=== PATIENT | female | born 1935 | race Caucasian/White ===

== ENCOUNTER 2018-03-25 00:49 | Emergency (ER) | payer OTHER ==
[~2018-03-25] VITALS: Ht 152.4 cm; Wt 76.3 kg
[~2018-03-25 00:49] MED LIST: TYLETAB34 PO; XARE15TA PO; ZOFR4TAB PO
[2018-03-25 00:52] VITALS: BP 181/74; PULSE 98; RESP 20; TEMP 98.4; O2SAT 94
[2018-03-25 01:20] VITALS: O2SAT 97
--- NOTE | 2018-03-25 01:20 | PD ---
HPI Chief Complaint: Fall Time Seen by Provider: 01:11 Travel History International Travel<30 days: No Contact w/Intl Traveler<30days: No Traveled to known affect area: No History of Present Illness HPI 82-year-old female here for evaluation of severe right-sided rib pain after mechanical trip and fall that occurred at around 9:30 PM yesterday evening. Patient reports that she was putting a bingo machine away when it caught on the carpet and she fell onto her right side. She remembers striking her face against the ground. She denies loss of consciousness. She states that she experienced immediate right-sided rib pain. She tried taking tramadol at home, however her pain has kept her from sleeping. She was driven here by her son. Pain is severe, constant, worse with movements as well as inspiration. She denies dyspnea. No abdominal pain. No head neck or back pain. No upper or lower extremity pain. She is on Xarelto for history of DVT. PFSH Past Medical History Hx Anticoagulant Therapy: Yes Asthma: No Blood Disorders: No Anxiety: No Depression: No Cancer: Yes (DYSPLASIA CELLS VAGINA) Cardiovascular Problems: Yes High Cholesterol: Yes COPD: Yes Cerebrovascular Accident: Yes Diabetes: No Diminished Hearing: No Diverticulitis: Yes Deep Vein Thrombosis: Yes (RIGHT CALF) Endocrine: No Gastrointestinal Disorders: Yes GERD: Yes Genitourinary: No Immune Disorder: No Implanted Vascular Access Dvce: Yes Medical other: Yes (DVT) Musculoskeletal: No Neurologic: Yes Psychiatric: No Reproductive: No Respiratory: Yes (COPD) Immunizations Current: No Pneumonia: Yes Tetanus Vaccination: Unknown Influenza Vaccination: No ?: Not Menopausal: Yes Ovarian Cysts: Yes Tubal Ligation: Yes Past Surgical History Abdominal Surgery: Yes (appy and choley) Appendectomy: Yes Body Medical Devices: stimulator for bowel incontenence - NO MRI Cholecystectomy: Yes (05) Gynecologic Surgery: Yes (DYSPLASIA CELLS OF VAGINA, hysterectomy, OOPHERECTOMY ) Hysterectomy: Yes Other Surgery: Yes (RECTAL SPHINCTER IMPLANT) Social History Alcohol Use: Yes (OCCASIONAL- EDWIN) Tobacco Use: No Substance Use: No Allergies-Medications (Allergen,Severity, Reaction): Coded Allergies: dimenhydrinate (Unverified Allergy, Severe, Nausea/Vomiting, 03/25/18) Reported Meds & Prescriptions Reported Meds & Active Scripts Active Reported Xarelto (Rivaroxaban) 15 Mg Tab 15 Mg PO Q12HR Review of Systems Except as stated in HPI: all other systems reviewed are Neg Physical Exam Narrative GENERAL: Well-developed, well-nourished, awake, alert, holding right-sided chest , no apparent distress. SKIN: Focused skin assessment warm/dry. Slight ecchymosis to right anterior/ lateral chest. No lacerations. HEAD: Atraumatic. Normocephalic. EYES: Pupils equal and round. No scleral icterus. No injection or drainage. ENT: Mucous membranes pink and moist. NECK: Trachea midline. No JVD. No midline cervical spine step-off or tenderness. CARDIOVASCULAR: Regular rate and rhythm. RESPIRATORY: No accessory muscle use. Clear to auscultation. Breath sounds equal bilaterally. GASTROINTESTINAL: Abdomen soft, non-tender, nondistended. MUSCULOSKELETAL: No obvious deformities. No clubbing. No cyanosis. No edema. Moderate right anterior/lateral chest wall tenderness without step-off, without crepitus, without paradoxical chest wall movements. NEUROLOGICAL: Awake and alert. No obvious cranial nerve deficits. Motor grossly within normal limits. Normal speech. PSYCHIATRIC: Appropriate mood and affect; insight and judgment normal. Data Data Last Documented VS Vital Signs Date Time Temp Pulse Resp B/P (MAP) Pulse Ox O2 Delivery O2 Flow Rate FiO2 03/25/18 03:20 88 18 146/77 (100) 97 Room Air 03/25/18 00:52 98.4 Orders Orders Complete Blood Count With Diff (03/25/18 01:16) Comprehensive Metabolic Panel (03/25/18 01:16) Prothrombin Time / Inr (Pt) (03/25/18 01:16) Act Partial Throm Time (Ptt) (03/25/18 01:16) Ct Abd/Pel W Iv Contrast(Rout) (03/25/18 01:16) Iv Access Insert/Monitor (03/25/18 01:16) Ecg Monitoring (03/25/18 01:16) Oximetry (03/25/18 01:16) Sodium Chloride 0.9% Flush (Ns Flush) (03/25/18 01:30) Electrocardiogram (03/25/18 01:16) Ct Thorax/ Chest W Iv Contrast (03/25/18 ) Ct Brain W/O Iv Contrast(Rout) (03/25/18 ) Ct Cerv Spine W/O Contrast (03/25/18 ) Chest, Single Ap (03/25/18 ) Morphine Inj (Morphine Inj) (03/25/18 01:30) Morphine Inj (Morphine Inj) (03/25/18 01:45) Iohexol 350 Inj (Omnipaque 350 Inj) (03/25/18 02:20) Resp Incentive Spirometry (03/25/18 ) Labs Laboratory Tests Test 03/25/18 01:20 White Blood Count 9.2 TH/MM3 Red Blood Count 4.25 MIL/MM3 Hemoglobin 12.9 GM/DL Hematocrit 37.9 % Mean Corpuscular Volume 89.3 FL Mean Corpuscular Hemoglobin 30.4 PG Mean Corpuscular Hemoglobin Concent 34.1 % Red Cell Distribution Width 13.9 % Platelet Count 296 TH/MM3 Mean Platelet Volume 8.2 FL Neutrophils (%) (Auto) 78.8 % Lymphocytes (%) (Auto) 12.8 % Monocytes (%) (Auto) 5.7 % Eosinophils (%) (Auto) 1.5 % Basophils (%) (Auto) 1.2 % Neutrophils # (Auto) 7.3 TH/MM3 Lymphocytes # (Auto) 1.2 TH/MM3 Monocytes # (Auto) 0.5 TH/MM3 Eosinophils # (Auto) 0.1 TH/MM3 Basophils # (Auto) 0.1 TH/MM3 CBC Comment DIFF FINAL Differential Comment Prothrombin Time 11.4 SEC Prothromb Time International Ratio 1.1 RATIO Activated Partial Thromboplast Time 27.5 SEC Blood Urea Nitrogen 15 MG/DL Creatinine 0.95 MG/DL Random Glucose 152 MG/DL Total Protein 7.8 GM/DL Albumin 3.5 GM/DL Calcium Level 9.0 MG/DL Alkaline Phosphatase 75 U/L Aspartate Amino Transf (AST/SGOT) 25 U/L Alanine Aminotransferase (ALT/SGPT) 36 U/L Total Bilirubin 0.4 MG/DL Sodium Level 142 MEQ/L Potassium Level 3.8 MEQ/L Chloride Level 108 MEQ/L Carbon Dioxide Level 27.5 MEQ/L Anion Gap 7 MEQ/L Estimat Glomerular Filtration Rate 56 ML/MIN [facility] Medical Decision Making Medical Screen Exam Complete: Yes Emergency Medical Condition: Yes Medical Record Reviewed: Yes Interpretation(s) EKG: Sinus, rate 90, normal axis, first-degree AV block with a ME interval of 232, low voltages in precordial leads, no acute ischemic abnormality. Differential Diagnosis Rib fractures, pneumothorax, hemothorax, intra-abdominal trauma, intracranial trauma, cervical spine injury Narrative Course Vital signs show heart rate 90, blood pressure 145/71, pulse ox 97% on room air , oral temp of 98.4F. CBC is unremarkable. CMP is essentially unremarkable. Chest x-ray: No acute process. CT head: No acute intracranial findings. CT cervical spine: CONCLUSION: No acute bony injury in the cervical spine. Degenerative changes throughout with moderate bony canal stenosis most significantly at C5-6 and C6-7. CT thorax: No acute injury in the chest. CT abdomen pelvis: CONCLUSION: No acute injury in the abdomen or pelvis. Patient was made aware of all findings. On reassessment she is sleeping comfortably. She is very tender along her right anterior/lateral chest wall just below her breasts. Again there is no step-off or crepitus or paradoxical chest wall movements. She has tramadol at home, but is requesting something a little bit stronger in case her pain worsens. She was given 2 mg of morphine with improvement in pain here in the emergency department. I will give her a prescription for hydrocodone and will discharge her home with an incentive spirometer. She has an appointment with her primary care physician at 10:00 AM today. She is stable for discharge home. Her son will be contacted to pick her up. She was advised on when to return to the emergency department. She verbalizes understanding and agreement with plan. Diagnosis Primary Impression: Chest wall contusion Qualified Codes: S20.211A - Contusion of right front wall of thorax, initial encounter Additional Impression: Fall Qualified Codes: W19.XXXA - Unspecified fall, initial encounter Referrals: Primary Care Physician 1 day Additional Instructions: Follow-up with your primary care physician today as scheduled. Return to the emergency department for worsening symptoms or any other concerns. Scripts Hydrocodone-Acetaminophen (Hydrocodone-Acetaminophen) 5-325 mg Tab 1 TAB PO Q6H Y for PAIN, #10 TAB 0 Refills Prov: Wayne Clarke MD 03/25/18 Disposition: 01 DISCHARGE HOME Condition: Stable Wayne Clarke MD March 25, 2018 01:20
[2018-03-25] MEDS ORDERED: SODIUM CHLORIDE 0.9% FLUSH 10 ML FLUSH IV FLUSH PRN (01:30)
[2018-03-25] MEDS ORDERED: MORPHINE SULFATE 2 MG/ML SYRINGE IV PUSH ONE (01:30)
[2018-03-25 01:35] LABS: AUTOMATED NEUTROPHIL # 7.3 TH/MM3 (1.8-7.7); BASOPHIL # 0.1 TH/MM3 (0-0.2); BASOPHIL % 1.2 % (0.0-2.0); EOSINOPHIL # 0.1 TH/MM3 (0-0.4); EOSINOPHIL % 1.5 % (0.0-4.0); HEMATOCRIT 37.9 % (35.0-46.0); HEMOGLOBIN 12.9 GM/DL (11.6-15.3); LYMPH % 12.8 % (9.0-44.0); LYMPHOCYTE # 1.2 TH/MM3 (1.0-4.8); MEAN CELL VOLUME 89.3 FL (80.0-100.0); MEAN CORPUSCULAR HEMOGLOBIN 30.4 PG (27.0-34.0); MEAN CORPUSCULAR HGB CONC 34.1 % (32.0-36.0); MEAN PLATELET VOLUME 8.2 FL (7.0-11.0); MONO % 5.7 % (0.0-8.0); MONOCYTE # 0.5 TH/MM3 (0-0.9); NEUT % 78.8 % (16.0-70.0); PLATELET COUNT 296 TH/MM3 (150-450); RED BLOOD COUNT 4.25 MIL/MM3 (4.00-5.30); RED CELL DISTRIBUTION WIDTH 13.9 % (11.6-17.2); WHITE BLOOD COUNT 9.2 TH/MM3 (4.0-11.0)
[2018-03-25 01:45] LABS: CHLORIDE 108 MEQ/L (98-107); SODIUM (NA) 142 MEQ/L (136-145)
[2018-03-25] MEDS ORDERED: MORPHINE SULFATE 4 MG/ML INJ IV PUSH ONE (01:45)
--- NOTE | 2018-03-25 01:49 | RADRPT ---
EXAM DATE/TIME: 03/25/2018 01:17 [facility] COMPARISON: CHEST SINGLE AP, March 28, 2015, 10:56. INDICATIONS : Right sided chest pain post fall today MEDICAL HISTORY : Chronic obstructive pulmonary disease. SURGICAL HISTORY : None. ENCOUNTER: Initial ACUITY: 1 day PAIN SCORE: 10/10 LOCATION: Right chest FINDINGS: There is mild linear parenchymal opacity at the left lung base which is grossly unchanged and likely scarring. The right lung is grossly clear. Cardiac contours are stable and satisfactory. No evidence of hemothorax or pneumothorax. Thoracic skeleton is stable with degenerative changes in the spine and shoulders. CONCLUSION: No acute process Anoop Flores MD on March 25, 2018 at 1:45 Board Certified Radiologist. This report was verified electronically.
[2018-03-25 01:50] VITALS: BP 145/71; PULSE 90; RESP 18; O2SAT 97
[2018-03-25 01:50] LABS: ALBUMIN 3.5 GM/DL (3.4-5.0); BICARBONATE 27.5 MEQ/L (21.0-32.0); BLOOD UREA NITROGEN 15 MG/DL (7-18); GLUCOSE,RANDOM 152 MG/DL (74-106)
[2018-03-25 01:51] LABS: INTERNATIONAL NORMALIZED RATIO 1.1 RATIO; PROTHROMBIN TIME - PATIENT 11.4 SEC (9.8-11.6)
[2018-03-25 01:53] LABS: ALT (GPT) 36 U/L (10-53); AST (GOT) 25 U/L (15-37); CREATININE 0.95 MG/DL (0.50-1.00); GLOMERULAR FILTRATION RATE 56 ML/MIN (>89)
[2018-03-25 01:54] LABS: TOTAL BILIRUBIN ADULT 0.4 MG/DL (0.2-1.0); TOTAL PROTEIN 7.8 GM/DL (6.4-8.2)
[2018-03-25 01:56] LABS: ALKALINE PHOSPHATASE 75 U/L (45-117)
[2018-03-25] MEDS ORDERED: IOHEXOL 350 MG/ML 10 ML VIAL (for RAD DIAG) IVCONTRAST ONE (02:20)
--- NOTE | 2018-03-25 02:53 | RADRPT ---
EXAM DATE/TIME: 03/25/2018 02:08 [facility] COMPARISON: No previous studies available for comparison. INDICATIONS : Patient fell this evening. RADIATION DOSE: 67.04 CTDIvol (mGy) MEDICAL HISTORY : Chronic obstructive pulmonary disease. Cerebrovascular disease. SURGICAL HISTORY : Appendectomy. Hysterectomy.Cholecystectomy.Implanted stimulator ENCOUNTER: Initial ACUITY: 1 day PAIN SCALE: 10/10 LOCATION: cranial TECHNIQUE: Multiple contiguous axial images were obtained of the head. Using automated exposure control and adj ustment of the mA and/or kV according to patient size, radiation dose was kept as low as reasonably a chievable to obtain optimal diagnostic quality images. DICOM format image data is available electro nically for review and comparison. FINDINGS: There are a couple of old right basal ganglia lacunar infarcts which are small. No evidence of intrac ranial mass or hemorrhage. No evidence of brain edema or shift. Nothing to suggest acute infarction. Extracranial structures are benign and intact. CONCLUSION: No acute intracranial findings Anoop Flores MD on March 25, 2018 at 2:48 Board Certified Radiologist. This report was verified electronically.
[2018-03-25 03:20] VITALS: BP 146/77; PULSE 88; RESP 18; O2SAT 97
--- NOTE | 2018-03-25 03:47 | RADRPT ---
EXAM DATE/TIME: 03/25/2018 02:08 [facility] COMPARISON: No previous studies available for comparison. INDICATIONS : Patient fell this evening. Neck pain. RADIATION DOSE: 26.53 CTDIvol (mGy) MEDICAL HISTORY : Cerebrovascular disease. Chronic obstructive pulmonary disease. Gastroesophageal reflux disease. SURGICAL HISTORY : Appendectomy. Hysterectomy.Cholecystectomy.Stimulator implant ENCOUNTER: Initial ACUITY: 1 day PAIN SCALE: 10/10 LOCATION: Right Paraspinal TECHNIQUE: Volumetric scanning of the cervical spine was performed. Multiplanar reconstructions in the sagittal, coronal and oblique axial planes were performed. Using automated exposure control and adjustment o f the mA and/or kV according to patient size, radiation dose was kept as low as reasonably achievable to obtain optimal diagnostic quality images. DICOM format image data is available electronically f or review and comparison. FINDINGS: Cervical spine alignment is satisfactory. There is no evidence of cervical spine fracture. There is p rominent degenerative change with disc space narrowing and endplate osteophyte formation most signifi cantly at C5-6 and C6-7. There is mild bony canal stenosis. There is moderately severe arthropathy of the posterior facet joints throughout. There is no evidence of paraspinal hematoma. CONCLUSION: No acute bony injury in the cervical spine. Degenerative changes throughout with moderate bony canal stenosis most significantly at C5-6 and C6-7. Anoop Flores MD on March 25, 2018 at 3:36 Board Certified Radiologist. This report was verified electronically.
--- NOTE | 2018-03-25 03:51 | RADRPT ---
EXAM DATE/TIME: 03/25/2018 02:14 [facility] COMPARISON: No previous studies available for comparison. INDICATIONS : Status post fall, right rib pain. IV CONTRAST: 96 cc Omnipaque 350 (iohexol) IV ; Cumulative dose for multiple exams. RADIATION DOSE: 17.89 CTDIvol (mGy) ; Combined studies - Thorax/Abdomen/Pelvis MEDICAL HISTORY : Chronic obstructive pulmonary disease. Cerebrovascular disease. Diverticulitis.GERD SURGICAL HISTORY : Hysterectomy. Cholecystectomy.Appendectomy. ENCOUNTER: Initial ACUITY: 1 day PAIN SCALE: 10/10 LOCATION: Right chest TECHNIQUE: Volumetric scanning of the chest was performed. Using automated exposure control and adjustment of t he mA and/or kV according to patient size, radiation dose was kept as low as reasonably achievable to obtain optimal diagnostic quality images. DICOM format image data is available electronically for review and comparison. Follow-up recommendations for detected pulmonary nodules are based at a minimum on nodule size and pa tient risk factors according to Fleischner Society Guidelines. FINDINGS: LUNGS: There is no consolidation or pneumothorax. No concerning pulmonary nodule is visualized. PLEURA: There is no pleural thickening or pleural effusion. MEDIASTINUM: The heart and great vessels demonstrate no acute abnormality. There is no mediastinal or hilar lymph adenopathy. AXILLAE: Within normal limits. No lymphadenopathy. SKELETAL: Within normal limits for patient age. MISCELLANEOUS: The visualized upper abdominal organs demonstrate no acute abnormality. CONCLUSION: No acute injury in the chest. Anoop Flores MD on March 25, 2018 at 3:46 Board Certified Radiologist. This report was verified electronically.
--- NOTE | 2018-03-25 03:54 | RADRPT ---
EXAM DATE/TIME: 03/25/2018 02:14 [facility] COMPARISON: No previous studies available for comparison. INDICATIONS : Status post fall right side pain IV CONTRAST: 96 cc Omnipaque 350 (iohexol) IV ; Cumulative dose for multiple exams. ORAL CONTRAST: No oral contrast ingested. RADIATION DOSE: 17.89 CTDIvol (mGy) ; Combined studies - Thorax/Abdomen/Pelvis MEDICAL HISTORY : Chronic obstructive pulmonary disease. Cerebrovascular disease. Diverticulitis.GERD SURGICAL HISTORY : Appendectomy. Tonsillectomy.Hysterectomy.Stimulator implant ENCOUNTER: Initial ACUITY: 1 day PAIN SCALE: 10/10 LOCATION: Right lateral abdomen TECHNIQUE: Volumetric scanning of the abdomen and pelvis was performed. Using automated exposure control and ad justment of the mA and/or kV according to patient size, radiation dose was kept as low as reasonably achievable to obtain optimal diagnostic quality images. DICOM format image data is available electro nically for review and comparison. FINDINGS: LOWER LUNGS: The visualized lower lungs are clear. LIVER: Homogeneous density without lesion. There is no dilation of the biliary tree. Gallbladder surgically absent.. SPLEEN: Normal size without lesion. PANCREAS: Within normal limits. KIDNEYS: Tiny bilateral cysts. No evidence of injury, stone or hydronephrosis ADRENAL GLANDS: Within normal limits. VASCULAR: There is no aortic aneurysm. BOWEL/MESENTERY: Colonic diverticulosis. No abnormal dilatation, wall thickening or focal inflammatory changes. ABDOMINAL WALL: Within normal limits. RETROPERITONEUM: There is no lymphadenopathy. BLADDER: No wall thickening or mass. REPRODUCTIVE: Uterus surgically absent. No evidence of pelvic mass, hematoma or free fluid. INGUINAL: There is no lymphadenopathy or hernia. MUSCULOSKELETAL: Pelvic stimulator with control pack over the right iliac crest. Degenerative changes in the spine and hips. No evidence of pelvic fracture. CONCLUSION: No acute injury in the abdomen or pelvis. Anoop Flores MD on March 25, 2018 at 3:49 Board Certified Radiologist. This report was verified electronically.
[2018-03-25] MEDS ORDERED: HYDR-3516 PO (04:06)
[2018-03-25 04:32] VITALS: BP 141/70; PULSE 86; RESP 18; O2SAT 97
--- NOTE | 2018-03-25 19:27 | EKG ---
Date Performed: 03/25/2018 Time Performed: 02:47:19 PTAGE: 82 years EKG: Sinus rhythm WITH FIRST DEGREE AV BLOCK LOW QRS VOLTAGE IN PRECORDIAL LEADS ABNORMAL ECG Since the PREVIOUS TRACING , no significant change noted PREVIOUS TRACIN01/13/2015 10.09 DOCTOR: Sean Johnson Interpretating Date/Time 03/25/2018 16:41:33
[2018-03-28] MEDS ORDERED: ALBU1AER5 INH (15:07)
[2018-03-28] MEDS ORDERED: XARE15TA PO (15:07)
[2018-03-28] MEDS ORDERED: TRAM50TA PO (15:07)
== END 2018-03-25 04:34 | disposition home or self-care (01) ==
LOC: PHED 00:49
DX: S20.211A Contusion of right front wall of thorax, initial encounter (principal); I44.0 Atrioventricular block, first degree; R94.31 Abnormal electrocardiogram [ECG] [EKG]; E78.00 Pure hypercholesterolemia, unspecified; J44.9 Chronic obstructive pulmonary disease, unspecified; K21.9 Gastro-esophageal reflux disease without esophagitis; W01.0XXA Fall on same level from slipping, tripping and stumbling without subsequent striking against object, initial encounter; Z86.718 Personal history of other venous thrombosis and embolism; Z86.73 Personal history of transient ischemic attack (TIA), and cerebral infarction without residual deficits
CPT/HCPCS: 70450; 71045; 71260; 72125; 74177; 80053; 85025; 85610; 85730; 93005; 94150; 96374; 99285; J2270; Q9967

== ENCOUNTER → 2018-03-28 | Outpatient (CLI) | payer OTHER ==
[~2018-03-28] MED LIST changes: +ALBU1AER5 INH; +HYDR-3516 PO; +TRAM50TA PO; -TYLETAB34 PO; -ZOFR4TAB PO
== END ==
LOC: CPRE 11:21
PROVIDERS: ATTEND Orthopaedic Surgery Sports Medicine
DX: M17.11 Unilateral primary osteoarthritis, right knee (principal)

== ENCOUNTER 2018-08-01 06:54 | Inpatient (IN) ==
--- NOTE | 2018-07-26 09:18 | P.RAD ---
Post Procedure Progress Note - Procedure Information Procedure Date: 07/26/18 Supervising Radiologist: Antoine Benoit MD Estimated blood loss (mL): 5 Anesthesia: Conscious Sedation - Plan of Activity Patient to Unit: [facility] Patient Condition: Good See PACS Report for procedural detail/treatment.
[2018-08-01] MEDS ORDERED: Chlorhexidine Gluconate 2% 1 Pack (2 Cloths) TOPICAL ONE (07:27)
[2018-08-01] MEDS ORDERED: Metoprolol Tartrate 25 MG Tablet PO ONE (07:27)
[2018-08-01] MEDS ORDERED: Dexamethasone Inj 20 MG/5 ML Vial IV.PUSH ONE (07:36)
[2018-08-01] MEDS ORDERED: Sodium Chlor 0.9% Inj 73.07 ML, Ropivacaine 0.5% PF Inj 24.63 ML, Ketorolac Inj 30 MG, ... P-ARTICULR SCH ×5 (07:45)
[2018-08-01] MEDS ORDERED: Chlorhexidine 4% Topical 120 APPLIC/120 ML Bottle TOPICAL SCH (07:45)
[2018-08-01] MEDS ORDERED: Sodium Chlor 0.9% Inj 250 ML ONE (07:58)
[2018-08-01] MEDS ORDERED: Vancomycin Inj 1,000 MG in Sodium Chlor 0.9% Inj 250 ML IV.SIG SCH (08:00)
[2018-08-01] MEDS ORDERED: ceFAZolin 2 GM/NS 100 ML IV; Q8H IV.SIG SCH ×2 (08:00)
[2018-08-01] MEDS ORDERED: TRANEXAMIC ACID IV.SIG SCH (08:00)
[2018-08-01] MEDS ORDERED: Sodium Chlor 0.9% Inj 500 ML IV.SIG SCH (08:00)
[2018-08-01] MEDS ORDERED: SODIUM CHLOR 0.9% IV.SIG SCH (08:00)
[2018-08-01] MEDS ORDERED: Bupivacaine 0.5% Inj 50 ML MDV Vial ONE (08:47)
[2018-08-01] MEDS ORDERED: HYDROmorphone PF Inj 1 MG/ML Ampul IV.PUSH PRN (09:02)
[2018-08-01] MEDS ORDERED: Post-op Orders (for Pharmacy) OTHER STA (09:02)
[2018-08-01] MEDS ORDERED: Lidocaine PF 1% Inj 5 ML Syringe INFILTRATN ONE (09:41)
[2018-08-01] MEDS ORDERED: Glycopyrrolate Inj 1 MG/5 ML Syringe IV.PUSH ONE (09:41)
[2018-08-01] MEDS ORDERED: Neostigmine Inj 5 MG/5 ML Syringe IV.PUSH ONE (09:41)
[2018-08-01] MEDS ORDERED: Tranexamic Acid Inj 3,000 MG in Sodium Chlor 0.9% Inj 100 ML P-ARTICULR ONE (10:36)
[2018-08-01] MEDS ORDERED: fentaNYL Citrate Inj 100 MCG/2 ML Ampul ONE (11:12)
--- NOTE | 2018-08-01 11:27 | MP ---
cc: Brian Dinero MD DATE OF OPERATION: 08/01/2018 PREOPERATIVE DIAGNOSIS: Right knee osteoarthritis. POSTOPERATIVE DIAGNOSIS: Right knee osteoarthritis. PROCEDURE PERFORMED: Right total knee arthroplasty. SURGEON: Brian Dinero MD. LANDSCAPE GARDENER: CASEY Heath. ANESTHESIA: General with a femoral nerve block. ESTIMATED BLOOD LOSS: 50 mL. TOURNIQUET TIME: 29 minutes at 250 mmHg. COMPLICATIONS: None. IMPLANTS USED: DePuy Attune size 5 posterior stabilized femoral component, size 4 rotating platform tibial baseplate, size 38 patella, size 6 mm polyethylene tibial insert. JUSTIFICATION: This patient is an 82-year-old female with history of severe end-stage osteoarthritis involving the right knee. She has severe disabling pain with standing, walking, ambulation, weightbearing, and severe pain at rest. She has failed greater than 3 months of nonoperative conservative treatment to include medication therapy, injections, ambulatory assist, home exercise program, activity modification. The patient's x-ray revealed severe end-stage osteoarthritis and [id number] joint space narrowing, subchondral sclerosis, subchondral cyst, osteophyte formation with subluxation and deformity. The patient was counseled as to the risks, benefits, and alternatives to total knee arthroplasty. The risks were discussed, which include, but are not limited to anesthesia, bleeding, infection, damage to nerves and blood vessels, pain, fracture, stiffness, failure of components, blood clots, pulmonary embolism, and even . The patient's pain was very severe. She favored the benefits over the risks and did wish to proceed with surgery. PROCEDURE IN DETAIL: Written consent was obtained. The patient was identified by name, taken to the operating room and placed supine on the table. General anesthesia was administered to the patient, as well as 2 grams of IV Ancef and 1 gram of IV vancomycin. A well-padded tourniquet was placed on the right thigh. The right lower extremity prepped and draped using isopropyl alcohol, Hibiclens solution, and ChloraPrep solution. After a timeout was performed, an Esmarch bandage was used to exsanguinate the right lower extremity and tourniquet inflated to 250 mmHg. A longitudinal incision made over the anterior aspect of the right knee. A medial parapatellar arthrotomy was performed. The patella was everted. A patellar resection guide was used to resect 7 mm of the patella. A size 38 mm guide was placed. Three drill holes were placed and a 38 mm trial fit well. Attention was turned to the femur. Intramedullary guide abhay was placed and distal femoral guide was set to remove 10 mm of distal femur, 5 degrees off the anatomic valgus axis alignment. An oscillating saw was used to perform the distal femoral cut. Attention was turned to the tibia where an extramedullary tibial guide was set to remove 5 mm off the lowest portion of the medial tibial plateau. Tibial guide was then placed and the tibial cut was performed. A 5 mm spacer block showed full extension. Attention was turned back to the femur. An AP sizing block measured a size 5. The anterior reference 3-degree external rotation guide was used to pin a size [address] The anterior, posterior, and chamfer cuts were performed. A size 5 PCL box cut was pinned in place and the PCL was box cut with an oscillating saw. The medial and lateral meniscus remnants were removed, as well as bone and soft tissue debris from the posterior portion of the knee. A size 4 tibia base was pinned in place. The tibia was drilled and punched. Trial components were evaluated and final components cemented in place. With the current components, the leg could to achieve full extension to 0 degrees and flexion to 140. No evidence of tibial liftoff. Varus valgus balance appeared appropriate and symmetric and the patella was noted to track centrally. With the tourniquet deflated, the Bovie cautery was used for hemostasis. The surgical wound was thoroughly irrigated with sterile saline pulsed lavage antibiotic-impregnated solution. The arthrotomy incision was closed with #1 Vicryl suture, subcutaneous layer with 2-0 Vicryl suture, and skin was closed with Dermabond. Sterile dressing applied. The patient tolerated the procedure well with no intraoperative complications noted. Bravo Wolfe PA-C, was present during the entire procedure to include patient positioning and the procedure itself. The medical necessary of a physician trust manager assistant was indicated in this case due to the complexity of the procedure. He assisted with appropriate manipulation of the leg as well as retraction of the bone and neurovascular structures. He assisted with preparation of bone and also implantation of the prosthetic replacement. MD EMERY Nicholas/gus , 10:59 AM , 11:08 AM
[2018-08-01] MEDS ORDERED: *Ondansetron Inj 4 MG/2 ML Vial PERIprocedural Use ONLY ONE (11:31)
--- NOTE | 2018-08-01 11:58 | XR ---
EXAM DATE: 08/01/2018 11:52 AM EDT AGE/SEX: 82 years / Female INDICATIONS: Post operative right knee. CLINICAL DATA: This is the patient's initial encounter. Patient reports that signs and symptoms have been present for 1 day and indicates a pain score of 0/10. MEDICAL/SURGICAL HISTORY: . Deep venous thrombosis. Osteoarthritis. . Cholecystectomy. Hyster ectomy. COMPARISON: [facility], KNEE RIGHT COMPLETE (4VWS), 11/12/2016. . FINDINGS: AP and lateral views of the knee following arthroplasty reveals a prosthesis in anatomic alignment. F racture is not appreciated. There is evident in the joint space CONCLUSION: Status post total knee arthroplasty. Jared Wei MD FACR Electronically signed by: Jared Wei MD 08/01/2018 11:57 AM EDT
[2018-08-01] MEDS ORDERED: ceFAZolin 2 GM Premix Inj 2 GM/50 ML PIGGYBACK IV.SIG SCH (13:00)
[2018-08-01] MEDS: ceFAZolin 2 GM/NS 100 ML IV; Q8H IV.SIG SCH ×4 (14:33→21:57)
--- NOTE | 2018-08-01 15:43 | P.CONIM ---
History of Present Illness Service: [facility] hospitalist Reason for Consult: Medical management Primary Care Provider: Seth Ross MD Family Provider: Seth Ross MD History of Present Illness: 82-year-old female with a medical history significant for COPD, history of DVT, osteoarthritis of the right knee who failed conservative management admitted for right knee arthroplasty. Hospitalist service consulted for medical management. Patient was seen and evaluated postoperatively. She reports she is feeling well. Pain is controlled.. She had an IVC filter placed about 6 days ago in anticipation for the surgery. She currently denies any nausea or vomiting. She states her COPD has been well controlled on her current inhalers. Review of Systems All other systems reviewed negative except as stated in HPI Musculoskeletal: Reports joint pain, Reports joint swelling, Reports limited joint movement PMFSH - History History Provided By: Patient - Medical History Medical History: Medical History (Last Reviewed 08/01/18 @ 15:31 by Kendall Newman MD) COPD (chronic obstructive pulmonary disease) DVT (deep venous thrombosis) History of incontinence of feces Insomnia Macular degeneration Osteoarthritis Pain in knee joint Vertigo Wears eyeglasses Wears hearing aid in both ears - Surgical History Surgical History: Surgical History (Last Reviewed 08/01/18 @ 15:31 by Kendall Newman MD) H/O elbow surgery H/O total hysterectomy History of appendectomy History of bladder surgery History of cholecystectomy Hx of cataract removal with insertion of prosthetic lens - Family History Family History: Family History (Last Updated 08/01/18 @ 15:31 by Kendall Newman MD) Other Family history non-contributory - Social History I have reviewed the patient's Social History: Yes - Tobacco History Second Hand Smoke Exposure: No Smoking Status: Never smoker - Alcohol History How Often Do You Have a Drink Containing Alcohol: Monthly or less - Substance Use History Substance History: No History of Abuse - Travel History Recent Travel in the [place] Within the Last 8 Weeks: No Recent Travel Out of the Country Within the Last 8 Weeks: No Medications and Allergies Active Medications: Active Medications Hydrocodone Bitart/Acetaminophen ([place] 7.5/325) 2 tab PO Q6H PRN PRN Reason: PAIN SCALE 5 TO 10 Hydrocodone Bitart/Acetaminophen ([place] 7.5/325) 1 tab PO Q4H PRN PRN Reason: PAIN LESS THAN 5 ON SCALE Al Hydroxide/Mg Hydroxide (Milk Of Magncrystal Liq) 30 ml PO BID PRN PRN Reason: Mild Constipation Aspirin (Aspirin Chew) 81 mg PO BID [facility] Chlorhexidine Gluconate (Hibiclens 4% Topical) 1 applicatio TOPICAL ONCE [facility] Stop: 08/05/18 07:44 Sodium Chloride 73.07 ml/Ropivacaine 24.63 ml/Ketorolac Tromethamine 30 mg/ Epinephrine HCl 0.5 mg/cloNIDine PF Inj 80 mcg 0 ml P-ARTICULR ONCE [facility] Diphenhydramine HCl (Benadryl) 25 mg PO Q6H PRN PRN Reason: ITCHING Hydromorphone HCl (Dilaudid Pf Inj) 1 mg IV.PUSH Q3H PRN PRN Reason: BREAKTHROUGH PAIN Lactated Ringer's (Lr 1000 Ml Inj) 1,000 mls @ 30 mls/hr IV.SIG .Q24H [facility] Stop: 08/02/18 07:29 Last Infusion: 08/01/18 10:59 Dose: Infused Sodium Chloride (Ns Inj) 500 mls @ 30 mls/hr IV.SIG .Q10H [facility] Tranexamic Acid 1,113 mg/ (Sodium Chloride) 111.13 mls @ 200 mls/hr IV.SIG ONCE [facility] Stop: 08/02/18 07:59 Last Infusion: 08/01/18 10:00 Dose: Infused Vancomycin HCl 1,000 mg/ (Sodium Chloride) 250 mls @ 250 mls/hr IV.SIG SOFTWARE ASSET MANAGEMENT ANALYST [facility] Stop: 08/04/18 07:35 Last Infusion: 08/01/18 10:07 Dose: Infused Cefazolin Sodium 2,000 mg/ (Sodium Chloride) 100 mls @ 200 mls/hr IV.SIG SOFTWARE ASSET MANAGEMENT ANALYST [facility] Stop: 08/04/18 07:59 Last Infusion: 08/01/18 09:50 Dose: Infused Lactated Ringer's (Lr 1000 Ml Inj) 1,000 mls @ 80 mls/hr IV.CONT .[id number] [facility] Last Admin: 08/01/18 11:47 Dose: 80 mls/hr Cefazolin Sodium 2,000 mg/ (Sodium Chloride) 100 mls @ 200 mls/hr IV.SIG Q6H [facility] Stop: 08/02/18 02:29 Last Admin: 08/01/18 14:33 Dose: 200 mls/hr Lactulose (Lactulose Liq) 30 ml PO DAILY PRN PRN Reason: SEVERE CONSITIPATION Miscellaneous Information (Mis Nursing Information) 1 each OTHER UNSCH PRN PRN Reason: SEE LABEL COMMENTS Stop: 08/02/18 11:02 Multivitamins/Minerals (Theragran-M) 1 tab PO BID [facility] Stop: 09/30/18 20:59 Ondansetron HCl (Zofran Inj) 4 mg IV.PUSH Q6H PRN PRN Reason: NAUSEA OR VOMITING Povidone Iodine (Betadine 7.5% Scrub) 1 applicatio TOPICAL ONCE [facility] Stop: 08/05/18 07:59 Senna/Docusate Sodium (Brunilda-Colace) 1 tab PO BID JOHN Sennosides (Senokot) 17.2 mg PO BID PRN PRN Reason: Moderate Constipation Sodium Chloride (Ns Flush) 2 ml IV.FLUSH BID JOHN Sodium Chloride (Ns Flush) 2 ml IV.FLUSH PRN PRN PRN Reason: FLUSH AFTER USING IV ACCESS Zolpidem Tartrate (Ambien) 5 mg PO HS PRN PRN Reason: INSOMNIA Allergies Allergy/AdvReac Type Severity Reaction Status Date / Time dimenhydrinate Allergy Severe Nausea/Vomi Verified 08/01/18 07:39 ting pepper (genus Capsicum) Allergy Severe Swelling Verified 08/01/18 07:39 of Lip/Tongue/Throat iron AdvReac Severe Nausea/Vomi Verified 08/01/18 07:39 ting Home Medications Medication Instructions Recorded Confirmed Type fluticasone-vilanterol [Breo 1 inh INHALATION DAILY 07/26/18 08/01/18 History Ellipta] rivaroxaban [Xarelto] 20 mg PO DAILY 07/26/18 08/01/18 History cyanocobalamin (vitamin B-12) 1,000 mcg PO DAILY 07/29/18 08/01/18 History [Vitamin B-12] [id number]-fal-nfrg-FA-vit K 1 tab PO DAILY 07/29/18 08/01/18 History [Adults Multivitamin] Exam Vital signs: Vital Signs 08/01/18 07:42 08/01/18 08:30 08/01/18 11:03 Temperature 97.9 F 97.4 F L Pulse Rate 84 78 77 Respiratory Rate 20 20 Blood Pressure 147/65 H 127/60 Pulse Oximetry 95 97 96 08/01/18 11:15 08/01/18 11:30 08/01/18 11:45 Temperature Pulse Rate 79 85 79 Respiratory Rate 19 18 15 Blood Pressure 126/57 L 172/69 H 159/72 H Pulse Oximetry 97 95 96 08/01/18 12:00 08/01/18 12:06 08/01/18 12:13 Temperature Pulse Rate 78 75 Respiratory Rate 13 12 Blood Pressure 151/60 H 129/62 Pulse Oximetry 96 95 97 08/01/18 13:00 08/01/18 14:00 08/01/18 14:21 Temperature Pulse Rate 80 74 Respiratory Rate 15 20 Blood Pressure 115/56 L 102/75 Pulse Oximetry 96 99 99 Intake & Output 07/31/18 08/01/18 08/01/18 18:59 06:59 18:59 Intake Total 1661.13 / 1661.13 Output Total 200 / 200 Balance 1461.13 / 1461.13 Weight 74.2 kg Intake: IV 1461.13 / 1461.13 LR 1000 mL Inj 1,000 ML @ 30 1000 / 1000 mls/hr IV.SIG .Q24H JOHN Rx#: [id number] Cyklokapron Inj 1,113 MG In NS 111.13 / 111.13 Inj 100 ML @ 200 mls/hr IV.SIG ONCE JOHN Rx#:[id number] Vancomycin Inj 1,000 MG In NS 250 / 250 Inj 250 ML @ 250 mls/hr IV.SIG SOFTWARE ASSET MANAGEMENT ANALYST JOHN Rx#:[id number] Ancef Inj 2,000 MG In NS Inj 80 100 / 100 ML @ 200 mls/hr IV.SIG SOFTWARE ASSET MANAGEMENT ANALYST JOHN Rx#:[id number] Anesthesia Amount 200 / 200 Output: Estimated Blood Loss 200 / 200 Other: Weight On Admission 74.2 kg Narrative: GENERAL: This is a well-nourished, well-developed patient, in no apparent distress. CARDIOVASCULAR: Normal rate and regular rhythm without murmurs, gallops, or rubs. RESPIRATORY: Good respiratory efforts. Breath sounds equal and clear to auscultation bilaterally. GASTROINTESTINAL: Abdomen soft, non-tender, non-distended. Normal active bowel sounds MUSCULOSKELETAL: Right knee postop. Neurovascularly intact distally. NEURO: Alert & Oriented x4 to person, place, time, situation. Moves all ext x4 PSYCH: Appropriate mood and affect. Results - Labs Labs: Laboratory Results - last 24 hr 08/01/18 08:00 Blood Type O Negative Blood Type Recheck Required Antibody Screen Negative - Imaging Impressions Knee X-Ray 08/01/18 09:01 CONCLUSION: Status post total knee arthroplasty. Jared Wei MD FACR Assessment and Plan - Assessment (1) Status post right knee replacement Code(s): Z96.651 - Presence of right artificial knee joint Status: Acute (2) COPD (chronic obstructive pulmonary disease) Code(s): J44.9 - Chronic obstructive pulmonary disease, unspecified Status: Acute (3) History of DVT (deep vein thrombosis) Code(s): Z86.718 - Personal history of other venous thrombosis and embolism Status: Acute - Plan 82-year-old female with: Osteoarthritis of the right knee status post right knee arthroplasty: - Continue routine postoperative care per orthopedics. - Pain control - Early PT History of DVT: -The patient underwent inferior vena cava filter placement last week in anticipation of surgery. -In the future, filter will be removed and she can resume the anticoagulation. History of COPD: - Continue home dose inhalers. -Breathing treatments as needed. - Incentive spirometry Thank you for allowing me to participate in the care of Ms. Torres. She is medically stable, will sign off. Please call or reconsult with questions.
[2018-08-01] MEDS ORDERED: Zolpidem Tartrate 5 MG Tablet PO PRN (21:00)
[2018-08-01] MEDS: Multivitamin/Minerals Therapeutic Tablet PO SCH (21:56)
[2018-08-01] MEDS: Senna/Docusate Sodium 8.6/50 MG Tablet PO SCH (21:58)
[2018-08-02] MEDS: ceFAZolin 2 GM/NS 100 ML IV; Q8H IV.SIG SCH ×2 (01:38)
--- NOTE | 2018-08-02 08:00 | P.PNOP ---
Subjective Interval history: pain controlled. Physical Exam Vital signs: Vital Signs 08/01/18 08:30 08/01/18 11:03 08/01/18 11:15 Temperature 97.4 F L Pulse Rate 78 77 79 Respiratory Rate 20 19 Blood Pressure 127/60 126/57 L Pulse Oximetry 97 96 97 08/01/18 11:30 08/01/18 11:45 08/01/18 12:00 Temperature Pulse Rate 85 79 78 Respiratory Rate 18 15 13 Blood Pressure 172/69 H 159/72 H 151/60 H Pulse Oximetry 95 96 96 08/01/18 12:06 08/01/18 12:13 08/01/18 13:00 Temperature Pulse Rate 75 80 Respiratory Rate 12 15 Blood Pressure 129/62 115/56 L Pulse Oximetry 95 97 96 08/01/18 14:00 08/01/18 14:21 08/01/18 15:00 Temperature Pulse Rate 74 81 Respiratory Rate 20 16 Blood Pressure 102/75 112/60 Pulse Oximetry 99 99 99 08/01/18 16:00 08/01/18 16:17 08/01/18 19:56 Temperature 97.6 F 97.1 F L 97.1 F L Pulse Rate 83 83 81 Respiratory Rate 17 18 18 Blood Pressure 146/68 H 126/65 119/50 L Pulse Oximetry 98 90 L 92 L 08/01/18 23:34 08/02/18 01:00 08/02/18 04:18 Temperature 97.3 F L 97.4 F L Pulse Rate 75 78 Respiratory Rate 18 17 18 Blood Pressure 92/51 L 91/50 L Pulse Oximetry 94 L 92 L Intake & Output 08/01/18 08/02/18 08/02/18 18:59 06:59 18:59 Intake Total 1761.13 / 1761.13 1680 / 1680 Output Total 200 / 200 Balance 1561.13 / 1561.13 1680 / 1680 Weight 74.2 kg Intake: IV 1561.13 / 1561.13 1200 / 1200 LR 1000 mL Inj 1,000 ML @ 80 1000 / 1000 mls/hr IV.CONT .[id number] JOHN Rx# :[id number] LR 1000 mL Inj 1,000 ML @ 30 1000 / 1000 mls/hr IV.SIG .Q24H [facility] Rx#: [id number] Cyklokapron Inj 1,113 MG In NS 111.13 / 111.13 Inj 100 ML @ 200 mls/hr IV.SIG ONCE JOHN Rx#:[id number] Vancomycin Inj 1,000 MG In NS 250 / 250 Inj 250 ML @ 250 mls/hr IV.SIG RETAIL LOSS PREVENTION INVESTIGATOR JOHN Rx#:[id number] Ancef Inj 2,000 MG In NS Inj 80 200 / 200 200 / 200 ML @ 200 mls/hr IV.SIG Q6H JOHN Rx#:[id number] Oral 480 / 480 Anesthesia Amount 200 / 200 Output: Estimated Blood Loss 200 / 200 Other: # Voids 1 3 Date of Last Bowel Movement 07/31/18 # Bowel Movements 0 Weight On Admission 74.2 kg Narrative: in bed, nad dressing c/d/i neg ana nvi - Urinary Catheter Management Straight Cath placed during this visit: yes, but has since been removed by the nurse Reason for continuing: Not indwelling catheter Insertion date: 08/01/18 Insertion time: 14:19 Removal date: 08/01/18 Removal time: 15:50 Results - Labs Laboratory Results - last 24 hr 08/01/18 08:00 Blood Type O Negative Blood Type Recheck Required Antibody Screen Negative - Imaging Impressions Knee X-Ray 08/01/18 09:01 CONCLUSION: Status post total knee arthroplasty. Jared Wei MD FACR Assessment and Plan - Ortho Post Op Day # 1 - Assessment and Plan s/p R TKA wbat ok to maintain dressing unless saturated resume xarelto d/c planning to snf - cleared when authorized by insurance rx in chart f/up dr. sharp 2 weeks
[2018-08-02] MEDS ORDERED: Multivitamin/Minerals Therapeutic Tablet PO SCH (09:00)
[2018-08-02] MEDS: Senna/Docusate Sodium 8.6/50 MG Tablet PO SCH ×2 (09:20→20:58)
[2018-08-02] MEDS: Multivitamin/Minerals Therapeutic Tablet PO SCH ×2 (09:20→20:58)
[2018-08-02] MEDS: Rivaroxaban 10 MG Tablet PO SCH (09:24)
[2018-08-02 09:54] LABS: Hematocrit 34.1 % (35.0-46.0)
[2018-08-02 10:23] LABS: Calcium 8.3 mg/dL (8.5-10.1); Carbon Dioxide 29.1 meq/L (21.0-32.0); Potassium 3.9 meq/L (3.5-5.1)
--- NOTE | 2018-08-02 15:43 | P.DIET ---
Nutritional Evaluation Type of nutrition evaluation: initial (Geriatric Screen for elective sx on pt's 80 years and greater) Assessment Assessment: Pt s/p R total knee arthroplasty. She is at 163% of her IBW. On a Regular diet, eating 100%. She is not at high nutritional risk. Consult RD if needed.
[2018-08-03 05:35] LABS: Hematocrit 33.2 % (35.0-46.0); Hemoglobin 10.8 gm/dL (11.6-15.3)
[2018-08-03 06:00] LABS: Calcium 8.1 mg/dL (8.5-10.1); Carbon Dioxide 28.6 meq/L (21.0-32.0); Potassium 4.2 meq/L (3.5-5.1)
--- NOTE | 2018-08-03 07:14 | P.PNOP ---
Subjective Interval history: doing ok. pain under control. Physical Exam Vital signs: Vital Signs 08/02/18 08:00 08/02/18 12:00 08/02/18 16:00 Temperature 97.4 F L 97.9 F 97.8 F Pulse Rate 70 66 77 Respiratory Rate 18 18 18 Blood Pressure 102/57 L 94/52 L 126/58 L Pulse Oximetry 94 L 94 L 93 L 08/02/18 20:00 08/03/18 00:00 08/03/18 01:00 Temperature 99.9 F H 100.5 F H Pulse Rate 87 87 Respiratory Rate 18 18 16 Blood Pressure 116/57 L 112/60 Pulse Oximetry 92 L 92 L 08/03/18 04:00 08/03/18 06:36 Temperature 98.1 F Pulse Rate 81 Respiratory Rate 18 17 Blood Pressure 117/53 L Pulse Oximetry 95 Intake & Output 08/02/18 08/03/18 08/03/18 18:59 06:59 18:59 Intake Total 440 / 440 140 / 140 Output Total 0 / 0 Balance 440 / 440 140 / 140 Weight 74.2 kg Intake: Oral 440 / 440 140 / 140 Output: Urine/Stool Mix 0 / 0 Other: # Voids 6 3 Date of Last Bowel Movement 07/31/18 07/31/18 Narrative: in bed, nad dressing c/d/i jan perez nvi - Urinary Catheter Management Straight Cath placed during this visit: yes, but has since been removed by the nurse Reason for continuing: Not indwelling catheter Insertion date: 08/01/18 Insertion time: 14:19 Removal date: 08/01/18 Removal time: 15:50 Results - Labs CBC & Chem 7: 08/03/18 04:12 08/03/18 04:12 Laboratory Results - last 24 hr 08/02/18 08/02/18 08/03/18 08:17 08:17 04:12 Hgb 11.0 L 10.8 L Hct 34.1 L 33.2 L Sodium 147 H Potassium 3.9 Chloride 111 H Carbon Dioxide 29.1 Anion Gap 7 BUN 16 Creatinine 1.14 H Estimated GFR 46 L Random Glucose 94 Calcium 8.3 L 08/03/18 04:12 Hgb Hct Sodium 145 Potassium 4.2 Chloride 109 H Carbon Dioxide 28.6 Anion Gap 7 BUN 21 H Creatinine 1.02 H Estimated GFR 52 L Random Glucose 93 Calcium 8.1 L Assessment and Plan - Ortho Post Op Day # 2 - Assessment and Plan s/p R TKA wbat ok to maintain dressing unless saturated kira d/c planning to snf - cleared when authorized by insurance rx in chart f/up dr. sharp 2 weeks
[2018-08-03] MEDS: Multivitamin/Minerals Therapeutic Tablet PO SCH (08:59)
[2018-08-03] MEDS: Rivaroxaban 10 MG Tablet PO SCH (08:59)
[2018-08-03] MEDS: Senna/Docusate Sodium 8.6/50 MG Tablet PO SCH (08:59)
[2018-08-03 09:39] VITALS: RESP 18
[2018-08-03 16:46] VITALS: BP 122/56; PULSE 84; TEMP 98.4; O2SAT 91
--- NOTE | 2018-08-04 07:44 | MD ---
cc: Brian Dinero MD DATE OF DISCHARGE: 08/03/2018 ADMITTING DIAGNOSIS: Severe degenerative osteoarthritis of the right knee. DISCHARGE DIAGNOSIS: Severe degenerative osteoarthritis of the right knee. HISTORY OF PRESENT ILLNESS: Ms. Torres is an 82-year-old female who has been a longstanding patient of Dr[facility]. She is currently under the care of for progressive and severe right knee pain. The patient states the pain is a severe, aching sensation with weightbearing activity. She has no alleviating factors at this point in time, although she has tried medications, bracing, assistive devices, physical therapy, home exercise program and multiple corticosteroid injections without relief of symptoms. She does have x-ray evidence of severe degenerative osteoarthritis in the right knee. While in the office, the patient was counseled on her diagnosis and treatment options. Risks, benefits, and indications were all discussed. The patient did elect to proceed with surgical intervention to include a right total knee arthroplasty. DATE OF SURGERY: 08/01/2018; right total knee arthroplasty. POSTOP: After surgery, the patient was admitted to [facility] where she received appropriate medical management, pain control, DVT prophylaxis, as well as physical therapy. The patient was placed back on Xarelto for which she takes for a history of pulmonary embolism. She also had an IVC filter placed prior to surgical intervention. DISCHARGE: Once being discharged from the hospital, patient is cleared to go to a nursing home facility. She is in stable condition. She may weight bear as tolerated. She has been instructed on wound care management. The patient has been provided prescriptions for pain control and DVT prophylaxis medication. She has also been provided a followup appointment approximately 2 weeks from date of surgery. The patient asked appropriate questions, which have been answered. The patient is cleared for discharge. Dictated by CASEY Heath MD EMERY Nicholas/pushpa , 07:16 AM , 07:21 AM
== END 2018-08-03 17:11 ==
LOC: HSDI 06:54 → N06 16:18
PROVIDERS: ADMIT Orthopaedic Surgery Sports Medicine; ATTEND Orthopaedic Surgery Sports Medicine